=== PATIENT | male | born 2000 | race Caucasian/White ===

== ENCOUNTER 2023-01-26 02:27 | Emergency (ER) | payer OTHER, SELFPAY ==
[2023-01-26] MEDS ORDERED: Boostrix 0.5 ML (Tdap) VIAL (>/=7 yrs of age) ONE (04:53)
== END 2023-01-26 05:19 | disposition home or self-care (01) ==
LOC: ERS 02:27
DX: S09.90XA Unspecified injury of head, initial encounter (principal); S01.01XA Laceration without foreign body of scalp, initial encounter; X93.XXXA Assault by handgun discharge, initial encounter; Y92.091 Bathroom in other non-institutional residence as the place of occurrence of the external cause
CPT/HCPCS: 12002; 70450; 70486; 90471; 90715